=== PATIENT | male | born 1995 ===

== ENCOUNTER 2016-07-13 06:15 | Emergency (ER) | payer MEDICAID ==
[2016-07-13 06:15] VITALS: BMI 19.2
[2016-07-13 06:37] VITALS: BP 125/68; RESP 17; O2SAT 99
[2016-07-13] MEDS ORDERED: Sodium Chloride 0.9% 1,000 ML IV STA (07:37)
--- NOTE | 2016-07-13 07:43 | ED PDOC ---
HPI: CCC, URI, Sore Throat Time Seen by Provider: 07/13/16 07:15 Chief Complaint (Nursing): Flu-like Symptoms Chief Complaint (Provider): Flu-like Symptoms History Per: Patient History/Exam Limitations: no limitations Onset/Duration Of Symptoms: Days Current Symptoms Are (Timing): Still Present Location Of Pain: Diffuse Myalgias, Headache Sick Contacts (Context): Family Member(s) Associated Symptoms: Fever, Chills, Cough Ear Symptoms: Bilateral: None Severity: Moderate Additional Complaint(s): Patient is a 20 year old male who presents to ED for evaluation of high fever for 4 days. Patient also reports cough, vomiting, nausea and headache. Patient denies abdominal pain and sore throat. Patient has his son in ED for evaluation of same symptoms at this time. Past Medical History Reviewed: Historical Data, Nursing Documentation, Vital Signs Vital Signs: Last Vital Signs Temp 103.3 F H 07/13/16 08:06 Pulse 111 H 07/13/16 06:35 Resp 17 07/13/16 06:35 BP 125/68 07/13/16 06:35 Pulse Ox 99 07/13/16 07:45 - Medical History PMH: No Chronic Diseases - Surgical History Surgical History: No Surg Hx - Family History Family History: States: Unknown Family Hx - Living Arrangements Living Arrangements: With Family - Immunization History Hx Influenza Vaccination: No - Home Medications Home Medications: Ambulatory Orders Medication Instructions Recorded Amoxicillin [Amoxil 500 mg Cap] 500 mg PO Q8 #30 cap 07/28/14 Ibuprofen 600 mg PO Q8 #30 tab 07/28/14 Ondansetron ODT [Zofran ODT] 4 mg PO Q8 PRN #12 odt 12/31/14 Ibuprofen [Motrin Tab] 1 tab PO Q6 PRN #15 tab 02/08/16 Oseltamivir [Tamiflu] 75 mg PO BID #10 cap 07/13/16 - Allergies Allergies/Adverse Reactions: Allergies Allergy/AdvReac Type Severity Reaction Status Date / Time No Known Allergies Allergy Verified 12/30/14 22:50 Review of Systems ROS Statement: Except As Marked, All Systems Reviewed And Found Negative Constitutional: Positive for: Fever, Chills ENT: Negative for: Ear Pain, Throat Pain Cardiovascular: Negative for: Chest Pain, Light Headedness Respiratory: Positive for: Cough. Negative for: Shortness of Breath Gastrointestinal: Positive for: Nausea, Vomiting. Negative for: Abdominal Pain , Diarrhea Genitourinary Male: Negative for: Dysuria, Hematuria Musculoskeletal: Negative for: Neck Pain, Back Pain Skin: Negative for: Rash Neurological: Positive for: Headache. Negative for: Dizziness Physical Exam - Reviewed Nursing Documentation Reviewed: Yes Vital Signs Reviewed: Yes - Physical Exam Appears: Positive for: No Acute Distress, Uncomfortable Skin: Positive for: Normal Color, Warm. Negative for: Rash Eye Exam: Positive for: Normal appearance ENT: Negative for: Pharyngeal Erythema, Tonsillar Exudate, Tonsillar Swelling Neck: Positive for: Normal, Painless ROM, Supple Cardiovascular/Chest: Positive for: Regular Rate, Rhythm. Negative for: Murmur Respiratory: Positive for: Normal Breath Sounds. Negative for: Respiratory Distress Gastrointestinal/Abdominal: Positive for: Normal Exam. Negative for: Tenderness Extremity: Positive for: Normal ROM Neurologic/Psych: Positive for: Alert, Oriented - ECG O2 Sat by Pulse Oximetry: 99 (RA) Pulse Ox Interpretation: Normal - Progress Re-evaluation Time: :27 Condition: Re-examined, Improved Medical Decision Making Medical Decision Making: Time: 729 Initial impression: Influenza vs Viral illness Initial plan: -- Flu swab -- Rapid strep -- NSF, Toradol, Tylenol and Zofran Scribe Attestation: Documented by Georgette Quintero acting as a scribe for Yann Ordonez MD MD Scribe Attestation: All medical record entries made by the Scribe were at my direction and personally dictated by me. I have reviewed the chart and agree that the record accurately reflects my personal performance of the history, physical exam, medical decision making, and the department course for this patient. I have also personally directed, reviewed, and agree with the discharge instructions and disposition. Disposition - Clinical Impression Clinical Impression: Influenza - Patient ED Disposition Is Patient to be Admitted: No Doctor Will See Patient In The: Office Counseled Patient/Family Regarding: Studies Performed, Diagnosis, Need For Followup - Disposition Referrals: [facility], [facility] [Outside] Disposition: Routine/Home Disposition Time: 09:31 Condition: GOOD Additional Instructions: Drink plenty of fluids. Take tylenol or motrin for fever. Follow up with your PCP in 2-3 days. Prescriptions: Oseltamivir [Tamiflu] 75 mg PO BID #10 cap Instructions: Influenza (ED) Print Language: SLOVENIAN
[2016-07-13 10:01] VITALS: PULSE 89; TEMP 100.3
== END 2016-07-13 09:45 | disposition home or self-care (01) ==
LOC: H.ER 06:15
DX: J11.1 Influenza due to unidentified influenza virus with other respiratory manifestations (principal); J02.9 Acute pharyngitis, unspecified; R51 Headache; R05 Cough